=== PATIENT | female | born 1980 | race Caucasian/White ===

== ENCOUNTER 2016-07-08 12:59 | Emergency (ER) | payer MEDICAID ==
[~2016-07-08] VITALS: Ht 157.5 cm; Wt 86.0 kg
[~2016-07-08 12:59] MED LIST: PREN0.01 PO
[2016-07-08 13:08] VITALS: BP 112/71; PULSE 92; RESP 16; TEMP 98.3; O2SAT 95
--- NOTE | 2016-07-08 13:34 | PD ---
HPI Chief Complaint: Related Problem Time Seen by Provider: 13:12 Travel History International Travel<30 days: No Contact w/Intl Traveler<30days: No Traveled to known affect area: No History of Present Illness HPI 35-year-old at 34 weeks 6 days presents with feeling a gush of fluid earlier this morning and feeling like she has to keep going to the bathroom with lower abdominal pressure. She states this occurred at 10:30 AM this morning. She denies other concurrent complaints. She states Dr. Amaya is her director clinical pharmacology. She called them and they advised her to go to the hospital to make sure her water did not break. She states she had to come here because it' s the closest hospital and did not have a way to get up to a different facility. Quality is pressure. Severity is moderate and constant. She states with her 2 prior pregnancies she had C-sections. PFSH Past Medical History Diminished Hearing: No Immunizations Current: Yes ?: LMP: October, : 3 Para: 2 Past Surgical History Section: Yes (X 2) Social History Alcohol Use: No (DENIES) Tobacco Use: No Substance Use: No Allergies-Medications (Allergen,Severity, Reaction): Coded Allergies: No Known Allergies (Unverified , 07/08/16) Reported Meds & Prescriptions Reported Meds & Active Scripts Active Vit ( Plus) (Prenat Multivit/Archer/Iron/Folic Ac) Tab 1 Tab PO DAILY Review of Systems Except as stated in HPI: all other systems reviewed are Neg Physical Exam Narrative GENERAL: Well-nourished, well-developed patient. SKIN: Warm and dry. HEAD: Normocephalic and atraumatic. EYES: No injection or drainage. ENT: No nasal drainage noted. NECK: Supple, trachea midline. CARDIOVASCULAR: Regular rate and rhythm RESPIRATORY: no increased effort. No accessory muscle use. GASTROINTESTINAL: Abdomen soft, mild ttp in lower abdomen GENITOURINARY: Normal external genitalia without lesions or erythema. Sterile cervical check and patient is still up high and more posterior BACK: Nontender without obvious deformity. NEUROLOGICAL: Awake and alert. Motor and sensory grossly within normal limits. Normal speech. Data Data Last Documented VS Vital Signs Date Time Temp Pulse Resp B/P Pulse Ox O2 Delivery O2 Flow Rate FiO2 07/08/16 13:08 98.3 92 16 112/71 95 Orders Urinalysis - C+S If Indicated (07/08/16 13:17) Iv Access Insert/Monitor (07/08/16 13:17) MDM Medical Decision Making Medical Screen Exam Complete: Yes Emergency Medical Condition: Yes Medical Record Reviewed: Yes (past history confirmed) Differential Diagnosis labor, leaking amniotic fluid, UTI Narrative Course Will discuss with OB hospitalist Patient updated and [facility]a transfer. Having staff call to get records and try to talk with her director clinical pharmacology as well [id number] ambulance here for transfer for further evaluation of possible amniotic fluid leakage Procedures Procedure Narrative Emergency Department Pelvic ultrasound was performed with patient consent. The curvilinear probe was used in the transverse and sagittal views within the suprapubic region revealing single intrauterine . heart rate was 136. good movement Physician Communication Physician Communication dr melgoza agrees to transfer to [facility] and requests records from dr caitlyn melgoza given update on patient and will take over care [id number] Diagnosis Primary Impression: Abdominal pain affecting Disposition: 70 TRANSFER TO OTHER FACILITY (OB) Condition: Stable Yudelka Lemos MD Jul 08, 2016 13:34
--- NOTE | 2016-07-08 15:00 | PD ---
HPI Chief Complaint Vaginal discharge 2 this morning Date Seen: Jul 08, 2016 Time Seen: 14:55 Travel History International Travel<30 Days: No Contact w/Intl Traveler<30Days: No Known Affected Area: No History of Present Illness HPI 35-year-old white female who is at 35 weeks and 1 day gestation comes in today due to vaginal discharge 2. She called her OBs office this morning and they instructed her to come to the hospital to rule out rupture of membranes. Para: 2 : 3 History Past Medical History Medical History: Denies Significant Hx Obstetric History Obstetric History 2 sections Past Surgical History Narrative Surgical 2 Family History Family History: Negative Social History Alcohol Use: No Tobacco Use: No Substance Abuse: No Allergies-Medications (Allergen,Severity, Reaction): Coded Allergies: No Known Allergies (Unverified , 07/08/16) Home Meds Active Scripts Multivit/Min/Fol Ac/Iron/Pren ( Vit ( Plus)) Tab1 Tab PO DAILY #100 TAB Ref 3 Prov:Payam Aburto MD 01/02/16 Review of Systems Except as stated in HPI: all other systems reviewed are Neg Physical Exam Vital Signs Date Time Temp Pulse Resp B/P Pulse Ox O2 Delivery O2 Flow Rate FiO2 07/08/16 13:08 98.3 92 16 112/71 95 Narrative GENERAL: Well-nourished, well-developed patient. SKIN: Warm and dry. HEAD: Normocephalic and atraumatic. EYES: No scleral icterus. No injection or drainage. ENT: No nasal drainage noted. Mucous membranes pink. Airway patent. NECK: Supple, trachea midline. No JVD. CARDIOVASCULAR: Regular rate and rhythm without murmurs, gallops, or rubs. RESPIRATORY: Breath sounds equal bilaterally. No accessory muscle use. BREASTS: Bilateral exam showed no masses , no retractions, no nipple discharge. ABDOMEN/GI: Abdomen soft, non-tender, bowel sounds present, no rebound, no guarding Gravid to [-] weeks size Fundal Height: [-35] GENITOURINARY: External Genitalia: intact and normal in appearance BUS glands: [Normal-] Cervix: [Posterior-] Dilatation: [Closed-] Effacement: [0%-] Station: [--3] Presentation: [-Vertex] Membranes: [intact] Uterine Contractions: [-Absent] Amnisure negative FHT's: Category: [1-] Baseline: [-140] Reactive: [-Reactive] Variability: Moderate Decels: Absent EXTREMITIES: No cyanosis or edema. BACK: Nontender without obvious deformity. No CVA tenderness. NEUROLOGICAL: Awake and alert. Motor and sensory grossly within normal limits. Five out of 5 muscle strength in all muscle groups. Normal speech. Data Data Vital Signs Reviewed: Yes Orders Urinalysis - C+S If Indicated (07/08/16 13:17) Iv Access Insert/Monitor (07/08/16 13:17) MDM Plan amnisure is negative no signs of gross rupture membranes on exam. Cervix is closed no signs of premature labor Follow-up with OB provider as scheduled Diagnosis Diagnosis: Primary Impression: Abdominal pain affecting Additional Impressions: Vaginal discharge during in third trimester Previous delivery affecting , antepartum 35 weeks gestation of Disposition: DISCHARGE HOME Condition: Stable Cass Case MD Jul 08, 2016 15:00
== END 2016-07-08 15:33 | disposition home or self-care (01) ==
LOC: PHED 12:59 → HOBED 15:33
DX: O26.893 Other specified pregnancy related conditions, third trimester (principal); R10.9 Unspecified abdominal pain; N89.8 Other specified noninflammatory disorders of vagina
CPT/HCPCS: 59025; 84112; 99281

== ENCOUNTER 2017-05-22 13:26 | Emergency (ER) | payer MEDICAID ==
[~2017-05-22] VITALS: Ht 157.5 cm; Wt 79.0 kg
[2017-05-22 13:31] VITALS: BP 124/69; PULSE 82; RESP 16; TEMP 98.5; O2SAT 97
[2017-05-22] MEDS ORDERED: SODIUM CHLORIDE 0.9% FLUSH 10 ML FLUSH IV FLUSH PRN (13:45)
[2017-05-22 13:54] VITALS: O2SAT 98
[2017-05-22 14:03] LABS: BASOPHIL # 0.1 TH/MM3 (0-0.2); BASOPHIL % 0.6 % (0.0-2.0); EOSINOPHIL # 0.1 TH/MM3 (0-0.4); EOSINOPHIL % 0.8 % (0.0-4.0); HEMATOCRIT 39.6 % (35.0-46.0); HEMOGLOBIN 12.8 GM/DL (11.6-15.3); LYMPH % 18.5 % (9.0-44.0); LYMPHOCYTE # 2.2 TH/MM3 (1.0-4.8); MEAN CELL VOLUME 91.7 FL (80.0-100.0); MEAN CORPUSCULAR HEMOGLOBIN 29.6 PG (27.0-34.0); MEAN CORPUSCULAR HGB CONC 32.3 % (32.0-36.0); MEAN PLATELET VOLUME 7.9 FL (7.0-11.0); MONO % 6.1 % (0.0-8.0); MONOCYTE # 0.7 TH/MM3 (0-0.9); PLATELET COUNT 317 TH/MM3 (150-450); RED BLOOD COUNT 4.32 MIL/MM3 (4.00-5.30); RED CELL DISTRIBUTION WIDTH 12.4 % (11.6-17.2); WHITE BLOOD COUNT 12.1 TH/MM3 (4.0-11.0)
[2017-05-22] MEDS ORDERED: SODIUM CHLOR 0.9% 1000 ML INJ 1,000 ML IV ONE (14:15)
[2017-05-22] MEDS ORDERED: MORPHINE SULFATE 2 MG/ML INJ IV PUSH ONE (14:15)
[2017-05-22] MEDS ORDERED: ONDANSETRON HCL 4 MG/2 ML VIAL IV PUSH ONE (14:15)
--- NOTE | 2017-05-22 14:17 | PD ---
HPI . RLQ abdominal pain Chief Complaint: GI Complaint Time Seen by Provider: 13:45 Travel History International Travel<30 days: No Contact w/Intl Traveler<30days: No Traveled to known affect area: No History of Present Illness HPI 36 yo F presents to ED with cc of RLQ abdominal pain x 1 day. Her pain started yesterday at 2pm. Since that time it has been constant, sharp/stabbing pain rated as a 9/10 on pain scale. She reports nausea but no vomiting. She has been able to hold her food down with last meal at 12pm today. Her symptoms are aggravated with deep breaths, walking and any other movement. She has not tried anything for it. She has a history of 3 c-sections s/p a tubal ligation. LMP PFSH Past Medical History Medical History: Denies Significant Hx Diminished Hearing: No Immunizations Current: Yes Tetanus Vaccination: < 5 Years Influenza Vaccination: Yes ?: Not LMP: 04/22/17 : 3 Para: 3 Tubal Ligation: Yes Past Surgical History Section: Yes (X 3) Social History Alcohol Use: No Tobacco Use: No Substance Use: No Allergies-Medications (Allergen,Severity, Reaction): Coded Allergies: No Known Allergies (Unverified Adverse Reaction, Unknown, 05/22/17) Reported Meds & Prescriptions Reported Meds & Active Scripts Active No Active Prescriptions or Reported Medications Review of Systems Except as stated in HPI: all other systems reviewed are Neg General / Constitutional: No: Fever, Chills HENT: No: Headaches Cardiovascular: No: Chest Pain or Discomfort Respiratory: No: Shortness of Breath Gastrointestinal: Positive: Nausea, Abdominal Pain, No: Vomiting, Diarrhea Physical Exam Narrative General: alert and oriented young female in moderate distress especially with any movement Skin: warm and dry Eyes: pupils round and symmetric Cardiovascular: Regular sinus rhythm. No rubs, murmurs or gallops Pulmonary: Clear to auscultation bilaterally. No wheezes, rales, rhonchi GI: bowel sounds all 4 quadrants. Soft. Diffusely tender to palpation however distinctively worse in RLQ. No rebound tenderness : normal external female genitalia. thin white discharge present in vaginal vault. Cervical os visualized. Pelvic exam demonstrates bilateral tenderness worse on right side Neuro: no obvious cranial nerve deficits Psych: congruent mood and affect Data Data Last Documented VS Vital Signs Date Time Temp Pulse Resp B/P (MAP) Pulse Ox O2 Delivery O2 Flow Rate FiO2 05/22/17 17:14 75 18 119/80 (93) 98 Room Air 05/22/17 13:31 98.5 Orders Orders Basic Metabolic Panel (Bmp) (05/22/17 13:45) Complete Blood Count With Diff (05/22/17 13:45) Urinalysis - C+S If Indicated (05/22/17 13:45) Iv Access Insert/Monitor (05/22/17 13:45) Ecg Monitoring (05/22/17 13:45) Oximetry (05/22/17 13:45) Sodium Chloride 0.9% Flush (Ns Flush) (05/22/17 13:45) Ed Urine Pregnancytest Poc (05/22/17 13:45) Sodium Chlor 0.9% 1000 Ml Inj (Ns 1000 M (05/22/17 14:15) Ondansetron Inj (Zofran Inj) (05/22/17 14:15) Morphine Inj (Morphine Inj) (05/22/17 14:15) Ct Abd/Pel W Iv Contrast(Rout) (05/22/17 14:33) Iohexol 350 Inj (Omnipaque 350 Inj) (05/22/17 15:18) Prochlorperazine Inj (Compazine Inj) (05/22/17 15:30) Diphenhydramine Inj (Benadryl Inj) (05/22/17 15:30) Gc And Chlamydia Pcr (05/22/17 15:38) Us Pelvis Comp Gas Operations Analyst/Non-Preg (05/22/17 ) Wet Prep Profile (05/22/17 15:38) Ceftriaxone Inj (Rocephin Inj) (05/22/17 16:15) Labs Laboratory Tests Test 05/22/17 13:42 05/22/17 14:30 05/22/17 16:10 White Blood Count 12.1 TH/MM3 Red Blood Count 4.32 MIL/MM3 Hemoglobin 12.8 GM/DL Hematocrit 39.6 % Mean Corpuscular Volume 91.7 FL Mean Corpuscular Hemoglobin 29.6 PG Mean Corpuscular Hemoglobin Concent 32.3 % Red Cell Distribution Width 12.4 % Platelet Count 317 TH/MM3 Mean Platelet Volume 7.9 FL Neutrophils (%) (Auto) 74.0 % Lymphocytes (%) (Auto) 18.5 % Monocytes (%) (Auto) 6.1 % Eosinophils (%) (Auto) 0.8 % Basophils (%) (Auto) 0.6 % Neutrophils # (Auto) 9.0 TH/MM3 Lymphocytes # (Auto) 2.2 TH/MM3 Monocytes # (Auto) 0.7 TH/MM3 Eosinophils # (Auto) 0.1 TH/MM3 Basophils # (Auto) 0.1 TH/MM3 CBC Comment DIFF FINAL Differential Comment Blood Urea Nitrogen 11 MG/DL Creatinine 0.75 MG/DL Random Glucose 107 MG/DL Calcium Level 8.8 MG/DL Sodium Level 138 MEQ/L Potassium Level 3.7 MEQ/L Chloride Level 105 MEQ/L Carbon Dioxide Level 25.8 MEQ/L Anion Gap 7 MEQ/L Estimat Glomerular Filtration Rate 88 ML/MIN Urine Color YELLOW Urine Turbidity CLEAR Urine pH 6.0 Urine Specific [place] 1.011 Urine Protein NEG mg/dL Urine Glucose (UA) NEG mg/dL Urine Ketones NEG mg/dL Urine Occult Blood NEG Urine Nitrite NEG Urine Bilirubin NEG Urine Leukocyte Esterase NEG Urine Squamous Epithelial Cells 0-5 /hpf Microscopic Urinalysis Comment CULT NOT INDICATED Clue Cells (Wet Prep) PRESENT Vaginal Trichomonas (Wet Prep) NONE SEEN Vaginal Yeast (Wet Prep) NONE SEEN MDM Medical Decision Making Medical Screen Exam Complete: Yes Emergency Medical Condition: Yes Differential Diagnosis appendicitis, ectopic , cholelithiasis, pancreatitis, ovarian cyst Narrative Course Patient with constant sharp 9/10 RLQ abdominal pain. Urine test negative. WBC count 12.1. Last Impressions Abdomen/Pelvis CT 05/22/17 1433 Signed Impressions: Service Date/Time: Monday, May 22, 2017 15:05 - CONCLUSION: 1. Within the right lower quadrant there is some ovarian cystic change measuring up to 4.3 cm , probable corpus luteum cyst measuring 1.7 cm and a questionable right hydrosalpinx. Recommend correlation with pelvic ultrasound. Mild edematous or inflammatory changes the right lower quadrant predominately below the right adnexa. Only the distal appendix is seen but this appears normal. Bello Sue MD Pelvis Ultrasound 05/22/17 0000 Signed Impressions: Service Date/Time: Monday, May 22, 2017 16:26 - CONCLUSION: 1. Hypoechoic area in the endometrial canal is probably related to phase of menses. 2. 3.5 cm cyst pedunculated off the right ovary. 3. Otherwise negative. Grant Salamanca MD So this patient will be treated for PID. She has been given Rocephin IV here and will be discharged scripts since for doxycycline and Flagyl. Lowry for pain and Zofran for nausea Diagnosis Primary Impression: Abdominal pain Qualified Codes: R10.31 - Right lower quadrant pain Additional Impressions: Bacterial vaginosis Pelvic inflammatory disease Patient Instructions: Bacterial Vaginosis (DC), General Instructions, Pelvic Inflammatory Disease (DC) Scripts Ondansetron (Zofran) 4 Mg Tab 4 MG PO Q6HR Y for NAUSEA OR VOMITING, #12 TAB 0 Refills Prov: Brandie Morris MD 05/22/17 Hydrocodone-Acetaminophen (Lowry) 5 Mg-325 Mg Tab 1 TAB PO Q4H Y for PAIN, #12 TAB 0 Refills Prov: Brandie Morris MD 05/22/17 Metronidazole (Flagyl) 500 Mg Tab 500 MG PO BID for Infection for 7 Days, #14 TAB 0 Refills Prov: Brandie Morris MD 05/22/17 Doxycycline Hyclate (Doxycycline Hyclate) 100 Mg Cap 100 MG PO BID for Infection, #20 CAP 0 Refills Prov: Brandie Morris MD 05/22/17 Disposition: 01 DISCHARGE HOME Condition: Stable Brandie Morris MD May 22, 2017 14:17
[2017-05-22 14:35] VITALS: BP 122/79; PULSE 96; RESP 16; O2SAT 97
[2017-05-22 14:36] LABS: BICARBONATE 25.8 MEQ/L (21.0-32.0); CALCIUM 8.8 MG/DL (8.5-10.1)
[2017-05-22 14:40] LABS: CREATININE 0.75 MG/DL (0.50-1.00)
[2017-05-22 14:46] LABS: BILIRUBIN, URINE NEG (NEG); BLOOD, URINE NEG (NEG); GLUCOSE,URINE NEG (NEG); KETONE, URINE NEG (NEG); NITRITE,URINE NEG (NEG); URINE LEUKOCYTE ESTERASE NEG (NEG)
[2017-05-22 14:53] LABS: SQUAMOUS EPITHELIAL CELL URINE 0-5 /hpf (0-5); URINE COLOR YELLOW (YELLW/STRAW)
[2017-05-22] MEDS ORDERED: IOHEXOL 350 MG/ML 10 ML VIAL (for RAD DIAG) IVCONTRAST ONE (15:18)
[2017-05-22] MEDS ORDERED: PROCHLORPERAZINE INJ 10 MG/2 ML VIAL IV PUSH ONE (15:30)
[2017-05-22] MEDS ORDERED: diphenhydrAMINE HCL 50 MG/ML VIAL IV PUSH ONE (15:30)
--- NOTE | 2017-05-22 15:32 | RADRPT ---
EXAM DATE/TIME: 05/22/2017 15:05 [facility] COMPARISON: No previous studies available for comparison. INDICATIONS : Right lower quadrant pain since yesterday. IV CONTRAST: 95 cc Omnipaque 350 (iohexol) IV ORAL CONTRAST: No oral contrast ingested. RADIATION DOSE: 16.32 CTDIvol (mGy) MEDICAL HISTORY : None SURGICAL HISTORY : section. Tubal ligation. ENCOUNTER: Initial ACUITY: 2 days PAIN SCALE: 8/10 LOCATION: Right lower quadrant TECHNIQUE: Volumetric scanning of the abdomen and pelvis was performed. Using automated exposure control and ad justment of the mA and/or kV according to patient size, radiation dose was kept as low as reasonably achievable to obtain optimal diagnostic quality images. DICOM format image data is available electro nically for review and comparison. FINDINGS: No lung bases are clear. No acute bony abnormalities. No acute findings in the liver, spleen, adrenals, kidneys or pancreas. No calcified gallstones or cuco iary ductal dilatation. Within the right lower quadrant there is some cystic change in the right adnexa measuring up to about 4.3 cm in diameter. There is also a suspected corpus luteum cyst measuring about 1.7 cm in diameter. There is an oblong area of some decreased attenuation possibly a hydrosalpinx. The appendix is drape d over this area and portions of it are not seen. The more distal appendix however does appear normal . There also mild edematous or inflammatory changes within the fat predominately below the right adne xa to the right of the anterior bladder. CONCLUSION: 1. Within the right lower quadrant there is some ovarian cystic change measuring up to 4.3 cm, probab le corpus luteum cyst measuring 1.7 cm and a questionable right hydrosalpinx. Recommend correlation w ith pelvic ultrasound. Mild edematous or inflammatory changes the right lower quadrant predominately below the right adnexa. Only the distal appendix is seen but this appears normal. Bello Sue MD on May 22, 2017 at 15:24 Board Certified Radiologist. This report was verified electronically.
[2017-05-22 16:00] VITALS: BP 101/64; PULSE 68; RESP 17; O2SAT 100
[2017-05-22] MEDS ORDERED: cefTRIAXone INJ 2,000 MG in SODIUM CHLORIDE 0.9% INJ 100 ML IV ONE (16:15)
[2017-05-22 17:14] VITALS: BP 119/80; PULSE 75; RESP 18; O2SAT 98
--- NOTE | 2017-05-22 17:32 | RADRPT ---
EXAM DATE/TIME: 05/22/2017 16:26 [facility] COMPARISON: No previous studies available for comparison. INDICATIONS : Pelvic pain. MEDICAL HISTORY : Pelvic pain. SURGICAL HISTORY : Tubal ligation. section. ENCOUNTER: Initial ACUITY: 2 days PAIN SCORE: 7/10 LOCATION: Bilateral pelvis MEASUREMENTS: UTERUS: 10.3 x 5.7 x 4.6 cm ENDOMETRIAL STRIPE: 13 mm RIGHT OVARY: 4.0 x 2.8 x 2.6 cm LEFT OVARY: 2.3 x 1.9 x 1.2 cm FINDINGS: UTERUS: The myometrium has homogeneous echotexture without mass. Hypoechoic area in the endometrial canal ma y be related to phase of menses RIGHT OVARY: Pedunculated cyst off the right ovary measures 3.5 x 1.8 x 2.5 cm. LEFT OVARY: Ovary contains no mass or significant cystic lesion. MISCELLANEOUS: No free fluid. CONCLUSION: 1. Hypoechoic area in the endometrial canal is probably related to phase of menses. 2. 3.5 cm cyst pedunculated off the right ovary. 3. Otherwise negative. Grant Salamanca MD on May 22, 2017 at 17:27 Board Certified Radiologist. This report was verified electronically.
[2017-05-22] MEDS ORDERED: DOXY100C PO (17:42)
[2017-05-22] MEDS ORDERED: ZOFR4TAB PO (17:42)
[2017-05-22] MEDS ORDERED: NORC5TAB PO (17:42)
[2017-05-22] MEDS ORDERED: METR-1 PO (17:42)
== END 2017-05-22 18:01 | disposition home or self-care (01) ==
LOC: PHED 13:26
DX: N76.0 Acute vaginitis (principal); N73.9 Female pelvic inflammatory disease, unspecified; N83.201 Unspecified ovarian cyst, right side
CPT/HCPCS: 74177; 76856; 80048; 81001; 84703; 85025; 87210; 87491; 87591; 96361; 96365; 96375; 99285; J0696; J1200; J2270; J2405; J7030; Q9967